=== PATIENT | female | born 1955 | race Two or more races ===

== ENCOUNTER 2024-07-05 08:20 | Day surgery (SDC) | payer OTHER, MEDICAID, SELFPAY ==
[2024-07-04 12:14] VITALS: BMI 31.9
[2024-07-05] VITALS (14 sets, daily range): BP systolic 115–149; BP diastolic 63–103; PULSE 69–83; RESP 15–20; TEMP 36.4–36.7; O2SAT 94–100; BMI 31.9
[2024-07-05] MEDS: fentaNYL CIT INJ 50 mCg/ML AMP 2ML (ASD USE ONLY) IV (09:57)
[2024-07-05] MEDS: SODIUM CHLORIDE 0.9% 500 ML 500 ML 20 ML IV (09:57)
[2024-07-05] MEDS: MIDAZOLAM INJ 1 MG/ML VIAL 2 ML (ASD USE ONLY) 2 MG IV (09:57)
== END 2024-07-05 10:35 | disposition home or self-care (01) ==
PROVIDERS: PCP Nurse Practitioner Family; Referring Provider Internal Medicine Gastroenterology; Visit Provider Internal Medicine Gastroenterology
PROC: 0DBE8ZX Excision of Large Intestine, Via Natural or Artificial Opening Endoscopic, Diagnostic (ICD-10-PCS; CPT 45380; principal; 2024-07-05 11:30)
PROC: (CPT 43239; 2024-07-05 11:30)
DX: D12.0 Benign neoplasm of cecum (principal); D12.3 Benign neoplasm of transverse colon; K64.9 Unspecified hemorrhoids; K29.50 Unspecified chronic gastritis without bleeding; K44.9 Diaphragmatic hernia without obstruction or gangrene; I10 Essential (primary) hypertension; E11.9 Type 2 diabetes mellitus without complications; J44.9 Chronic obstructive pulmonary disease, unspecified; Z79.84 Long term (current) use of oral hypoglycemic drugs; Z79.4 Long term (current) use of insulin; Z79.899 Other long term (current) drug therapy
CPT/HCPCS: 45385; 43239; A4217; A4649; J2250; J3010; J7040